=== PATIENT | male | born 1950 | race Asian ===

== ENCOUNTER → 2021-01-13 09:33 | Outpatient (CLI) | payer MEDICARE, OTHER, SELFPAY ==
[2021-01-13 10:53] LABS: COVID19 -Nasal RAPID Negative (Negative)
== END ==
PROVIDERS: Visit Provider Specialist
DX: Z20.822 Contact with and (suspected) exposure to COVID-19 (principal)
CPT/HCPCS: 87635; C9803

== ENCOUNTER 2021-01-14 08:47 | Day surgery (SDC) | payer MEDICARE, OTHER, SELFPAY ==
--- NOTE | 2021-01-14 | PATH_ITS ---
[facility] Accession Number: [id number] . 01 Material submitted: . colon - ASCENDING COLON NEAR CECUM . 02 Diagnosis: Ascending Colon Near Cecum, Biopsy: Tubular adenoma. V 01/20/2021 1441 Local . 02 Electronically signed: . Cheli Vargas MD, Pathologist NPI- [id number] . 01 Gross description: . ASCENDING COLON NEAR CECUM: Received in formalin are 2 fragment(s) of cerna, soft tissue measuring 0.4 x 0.3 x 0.2 cm to 0.3 x 0.2 x 0.2 cm submitted entirely in 1 cassette(s) /[facility] 01/17/2021 1038 Local . 02 Pathologist provided ICD-10: D12.2 . 02 CPT . 604231 Performed at: 01 [facility] [address] [address] [id number] MD Bryna John MD Phone: [phone] Performed at: 02 [facility] [address] [address] [facility] [address] [place], [place] [id number] MD Cheli Vargas MD Phone: [phone]
[2021-01-14 09:32] VITALS: BP 133/72; PULSE 46; RESP 16; TEMP 36.1; O2SAT 98; BMI 25.1
[2021-01-14] MEDS: LACTATED RINGERS 1,000 ML 200 ML IV (09:41)
--- NOTE | 2021-01-14 10:29 | PM.HP.1 ---
History of Present Illness History of Present Illness Date Patient Seen: 01/14/21 Time Patient Seen: 10:19 Chief complaint: SDC Narrative: Patient is a gentleman here for a screening colonoscopy. He has had polyps in the past. Last exam was about 4 years ago. Patient History Medical History Hyperlipidemia Hypertension Skin cancer Family & Social History Social History: household members spouse Tobacco & Substance use: Smoking Status Never smoker alcohol intake frequency 0-2 drinks per day Substance Use Type does not use Meds Home Medications and Allergies Home Medications Medication Instructions Recorded Confirmed Type aspirin 81 mg PO QDAY #0 12/21/17 01/14/21 History atenolol 50 mg PO DAILY 01/14/21 01/14/21 History fenofibrate 160 mg PO DAILY 01/14/21 01/14/21 History hydrochlorothiazide 12.5 mg PO DAILY 01/14/21 01/14/21 History Allergies Allergy/AdvReac Type Severity Reaction Status Date / Time No Known Allergies Allergy Uncoded 01/14/21 09:15 Review of Systems Review of Systems ROS: Yes All systems reviewed with the patient and are negative except as otherwise documented Exam Vital Signs (past 8 hours): - 01/14/21 09:32 Temperature 96.9 F L Pulse Rate 46 L Respiratory Rate 16 Blood Pressure 133/72 Pulse Oximetry 98 Oxygen Delivery Method Room Air Oxygen Flow Rate 0 Narrative Exam Narrative: Pleasant cooperative patient no apparent distress. Lungs are clear to auscultation. No rales or rhonchi. Heart regular rate and rhythm no murmur gallop. Abdomen is soft nontender without mass. No obvious hernias. Patient is alert and oriented x3. Assessment & Plan Assessment & Plan narrative: The patient for a screening colonoscopy. I have discussed the procedure with them. Risks of bleeding, perforation which would necessitate major operation, failure to find remove all lesions, the potential tattoo were all discussed. All questions were answered. They wished to proceed.
--- NOTE | 2021-01-14 10:30 | PM.PREOP ---
Pre-operative Note COVID-19 COVID-19 status: Negative Result date/Date tested (Pos, Neg/Pending): 01/13/21 Interval Note History & Physical reviewed/Exam performed by Physician: Yes Changes to H&P: No ASA Class (for procedural sedation): I
[2021-01-14] MEDS: MIDAZOLAM 5 MG/5 ML VIAL IV (10:39)
[2021-01-14] MEDS: fentaNYL 250 MCG/5 ML INJ IV (10:39)
[2021-01-14 11:02] VITALS: BP 96/65; PULSE 45; RESP 8; TEMP 36.5; O2SAT 92
--- NOTE | 2021-01-14 11:03 | PM.OP.ENDO ---
Operative Date/Time/Diagnoses Date of procedure: 01/14/21 Time of procedure: 11:03 Pre-op diagnosis: Screening exam in a patient with a history of polyps. Last exam about 4 years ago. Post-op diagnosis: same (Two possible tiny polyps in the ascending colon. Right-sided diverticulosis.) Procedure & Clinicians Study performed: Colonoscopy with cold biopsy Same procedure as scheduled: Yes Indications: Screening in a increased risk group.(personal history of polyps and both parents had colon cancer) Surgeon: Emir Sawyer Procedure Notes SCOAP/Timeout: Performed Procedure in detail: The patient was placed in the left lateral decubitus position and underwent IV sedation directed by the surgeon consisting of fentanyl and Versed. Digital exam was unremarkable. The scope was inserted and advanced through the rectum into the sigmoid, descending, transverse, and ascending colon. Patient was noted to have some right sided diverticulosis in the ascending colon and cecum.. The cecum was reached identified by the ileocecal valve and the appendiceal opening. The ileocecal valve was briefly cannulated. The terminal ileum was normal in appearance. The scope was gradually brought out. Two tiny possible Polyps were found at the ascending colon and were biopsied and removed. No other lesions were seen on egress.. The scope ultimately was retroflexed in the rectum. The appearance was remarkable for internal hemorrhoids without ulceration. The scope was removed and the patient tolerated the procedure well. Prep was good. Scope withdrawal time: 7 minutes(9 total) Sedation minutes: 23 Specimen(s): other (Polyps) Complications: none Post-procedure Recommendations: Colonscopy in 5 years Follow up: as needed Disposition: PACU
[2021-01-14 11:07] VITALS: BP 108/62; PULSE 47; RESP 8; O2SAT 93
[2021-01-14 11:13] VITALS: BP 102/63; PULSE 66; RESP 10; O2SAT 95
[2021-01-14 11:16] VITALS: BP 105/57; PULSE 50; RESP 10; TEMP 36.6; O2SAT 95
== END 2021-01-14 11:32 | disposition home or self-care (01) ==
PROVIDERS: PCP Family Medicine; Referring Provider Specialist; Visit Provider Specialist
PROC: 0DJD8ZZ Inspection of Lower Intestinal Tract, Via Natural or Artificial Opening Endoscopic (ICD-10-PCS; CPT 45378; principal; 2021-01-14 10:00)
DX: Z12.11 Encounter for screening for malignant neoplasm of colon (principal); Z86.010 Personal history of colon polyps; Z80.0 Family history of malignant neoplasm of digestive organs; D12.2 Benign neoplasm of ascending colon; E78.5 Hyperlipidemia, unspecified; I10 Essential (primary) hypertension; K64.8 Other hemorrhoids; K57.30 Diverticulosis of large intestine without perforation or abscess without bleeding
CPT/HCPCS: 45380; 99152; J2250; J3010